=== PATIENT | male | born 1995 | race Caucasian/White ===

== ENCOUNTER 2023-11-18 16:34 | Inpatient (IN) ==
[2023-11-18 17:33] LABS: Basophils # (auto) 0.03 K/uL (0.00-0.20); Basophils % (auto) 0.2 %; Eosinophils # (auto) 0.01 K/uL (0.00-0.50); Eosinophils % (auto) 0.1 %; Hematocrit (blood only) 46.1 % (42.0-52.0); Hemoglobin 15.4 g/dl (14.0-18.0); Immature Granulocytes # (auto) 0.04 K/uL (0.01-0.20); Immature Granulocytes % (auto) 0.3 %; Lymphocytes # (auto) 1.82 K/uL (1.20-3.40); Lymphocytes % (auto) 14.1 %; Mean Corpuscular Hemoglobin 28.4 pg (25.0-34.0); Mean Corpuscular Hgb Conc 33.4 g/dL (32.0-36.0); Mean Corpuscular Volume 85.1 fL (80.0-100.0); Mean Platelet Volume 9.8 fL (9.4-12.4); Monocytes # (auto) 0.43 K/uL (0.11-0.59); Monocytes % (auto) 3.3 %; Neutrophils # (auto) 10.55 K/uL (1.40-6.50); Platelet Count 292 K/uL (130-400); RDW Coefficient of Variation 13.2 % (11.5-14.5); RDW Standard Deviation 40.8 fL (36.4-46.3); Red Blood Count 5.42 M/uL (4.70-6.10); White Blood Count 12.88 K/ul (4.8-10.8)
[2023-11-18 17:45] LABS: Albumin Globulin Ratio 1.3 (0.9-2); Albumin Level 4.7 gm/dl (3.4-5.0); BUN Creatinine Ratio 16.5 (10-20); Bilirubin,Total 0.5 mg/dl (0.2-1.0); Creatinine Clr Calc Pharmacy 132.5 ml/min; Est GFR (African American) 124.4 ml/min; Est GFR (Non-African American) 107.3 ml/min; Globulin 3.7 gm/dl (2.5-4.0); Total Protein 8.4 gm/dl (6.0-8.3)
[2023-11-18 17:48] LABS: Acetaminophen < 3 ug/ml (10-30); Salicylate < 3.0 mg/dl (3.0-30)
[2023-11-18 17:53] LABS: Appearance Urine Clear (Clear); Bacteria Urine Automated None Seen (None Seen); Bilirubin Urine Negative (Negative); Blood Urine Negative (Negative); Cast Urine Automated 0-2 /lpf (0-2); Color Urine Yellow; Epithelial Cell Urine Auto 0-2 /hpf (0-2); Glucose Urine UA Negative (Negative); Ketones Urine 1+ (Negative); Leukocyte Esterase Urine Negative (Negative); Mucus Urine Present (None Prsent); Nitrite Urine Negative (Negative); Protein Urine Trace (Negative); RBC Urine Automated 0-2 /hpf (0-2); Specific Gravity Urine 1.031 (1.000-1.030); Urobilinogen Urine Negative (Negative); WBC Urine Automated 0-5 /hpf (0-5)
[2023-11-18 18:01] LABS: Thyroid Stimulating Hormone 1.912 uIu/ml (0.300-4.500)
[2023-11-18 18:12] LABS: Amphetamines+Metham, Urine Neg (Neg); Barbiturates, Urine Neg (Neg); Benzodiazepine, Urine Neg (Neg); Cocaine, Urine Neg (Neg); Fentanyl, Urine Neg (Neg); MDMA (Ecstacy), Urine Pos (Neg); Marijuana, Urine Neg (Neg); Methadone, Urine Neg (Neg); Opiate, Urine Neg (Neg); Phencyclidine, Urine Neg (Neg)
--- NOTE | 2023-11-18 18:30 | Emergency Department Note ---
Impression & Plan Depression with suicidal ideation ED Provider Note CHIEF COMPLAINT: Mental health evaluation HISTORY OF PRESENT ILLNESS: This 28-year-old male patient with past medical history of depression and anxiety presents emergency department with complaints of worsening symptoms. He did have passive suicidal ideation earlier today. He states he has never had a plan. He has never been admitted to the inpatient service previously. He denies significant substance issues, denies alcohol, tobacco and marijuana. He has been on Wellbutrin, but states he misses doses occasionally. He did recently stop his Abilify within the last 6 weeks. He does have a psychiatrist REVIEW OF SYSTEMS: A review of systems was performed with positives and pertinent negatives listed in the history of present illness. 10 systems were reviewed and are otherwise negative. ALLERGIES: see below MEDICATIONS: see below PMH: see below SOCIAL HISTORY: see below DDx: Toxicologic, mood disorder, trauma, situational stressors, medication noncompliance among others. PHYSICAL EXAM: Vital signs reviewed. General: Well-appearing 28-year-old male, in no significant distress. HEENT: No scleral icterus, PERRLA, neck supple. moist mucous membranes Cardiovascular: Regular rate and rhythm, no extra sounds. Pulmonary: Clear to auscultation bilaterally, normal work of breathing. Abdomen: Soft, nontender, nondistended, positive bowel sounds. Musculoskeletal: Atraumatic, no peripheral edema. Psych: Positive passive SI, negative HI Neurologic: Patient awake alert and oriented x 3, speech is clear Skin: Warm, dry, no rash EMERGENCY DEPARTMENT COURSE/MDM: this patient was evaluated and appeared to be in no significant distress. He was medically cleared and referred to the mental health pillowcase folder for evaluation. Patient was referred on a 201 basis to the inpatient psychiatric team and accepted for admission. Please see their notes for further details. DISPOSITION: Admission Past Med/Surg History Problem List (Updated 11/22/23 @ 06:20 by Blanca Resendiz MD) Borderline personality disorder Bipolar 2 disorder, major depressive episode Anxiety Depression with suicidal ideation (Acute) Alcohol use Post traumatic stress disorder (PTSD) ADHD Depression, unspecified Medical History (Updated 11/22/23 @ 06:20 by Blanca Resendiz MD) Alcohol use disorder No significant past medical history Family History Other No pertinent family history in first degree relatives Social History Smoking Status: Former smoker Preferred Language: Egyptian Communication Ability: Effective Head School Custodian Required: No Beliefs That Will Affect Care: None Feels Safe at Home: Yes Gender Identity: Male Assistive Devices: None Allergies Allergies Allergy/AdvReac Type Severity Reaction Status Date / Time mushroom Allergy Hives Verified 11/19/23 09:30 Penicillins Allergy Hives Verified 11/19/23 09:30 Home Meds Home Medications Medication Instructions Recorded Confirmed bupropion HCl 300 mg 24 hr tablet, 300 mg PO DAILY 11/18/23 11/18/23 extended release prazosin 1 mg capsule 1 mg PO DAILY 11/18/23 11/18/23 propranolol 10 mg tablet 10 mg PO BID PRN anxiety 11/18/23 11/18/23 Results & Data (ED) Vital Signs Vital Signs - 24 hr 11/18/23 16:38 11/18/23 18:34 Temperature 36.5 C Temperature Source Temporal Artery Scan Pulse Rate 102 H Pulse Rate [Finger] 101 H Respiratory Rate 20 18 Respiratory Effort / Characteristics Non-Labored Spontaneous Respiratory Depth Normal Respiratory Pattern Regular Blood Pressure 147/96 H Blood Pressure [Left Arm] 128/84 Blood Pressure Mean 113 Blood Pressure Mean [Left Arm] 98 Blood Pressure Position [Left Arm] Sitting Pulse Oximetry 97 96 Oxygen Delivery Method Room Air Room Air Sepsis Recent Fever Within 48 Hours No Sepsis New/Unexplained Change in Mental Status N/A Sepsis Action Taken by Nursing No Action Required Home Medications Current Medication List: was personally reviewed by me Laboratory Data Attestation: I reviewed the patient's lab results. 11/18/23 17:05 11/18/23 17:05 Lab Results 11/18/23 11/18/23 Range/Units 16:51 17:05 WBC 12.88 H (4.8-10.8) K/ul RBC 5.42 (4.70-6.10) M/uL Hgb 15.4 (14.0-18.0) g/dl Hct 46.1 (42.0-52.0) % MCV 85.1 (80.0-100.0) fL MCH 28.4 (25.0-34.0) pg MCHC 33.4 (32.0-36.0) g/dL RDW Std Deviation 40.8 (36.4-46.3) fL RDW Coeff of Tamra 13.2 (11.5-14.5) % Plt Count 292 (130-400) K/uL MPV 9.8 (9.4-12.4) fL Immature Gran % (Auto) 0.3 % Neut % (Auto) 82.0 % Lymph % (Auto) 14.1 % [place] % (Auto) 3.3 % Eos % (Auto) 0.1 % Baso % (Auto) 0.2 % Neut # (Auto) 10.55 H (1.40-6.50) K/uL Lymph # (Auto) 1.82 (1.20-3.40) K/uL [place] # (Auto) 0.43 (0.11-0.59) K/uL Eos # (Auto) 0.01 (0.00-0.50) K/uL Baso # (Auto) 0.03 (0.00-0.20) K/uL Immature Gran # (Auto) 0.04 (0.01-0.20) K/uL Sodium 136 (136-145) mmol/L Potassium 4.0 (3.5-5.1) mmol/L Chloride 102 (98-107) mmol/L Carbon Dioxide 24 (21-32) mmol/L Anion Gap 10 (3-11) BUN 16 (6-23) mg/dl Creatinine 0.97 (0.6-1.4) mg/dl Est Cr Clr Drug Dosing 132.5 ml/min Est GFR ( Amer) 124.4 ml/min Est GFR (Non-Af Amer) 107.3 ml/min BUN/Creatinine Ratio 16.5 (10-20) Glucose 97 (70-99(Fasting)) mg/dl Calcium 10.0 (8.6-10.3) mg/dl Total Bilirubin 0.5 (0.2-1.0) mg/dl AST 19 (13-39) U/L ALT 21 (7-52) U/L Alkaline Phosphatase 85 (34-104) U/L Total Protein 8.4 H (6.0-8.3) gm/dl Albumin 4.7 (3.4-5.0) gm/dl Globulin 3.7 (2.5-4.0) gm/dl Albumin/Globulin Ratio 1.3 (0.9-2) TSH 1.912 (0.300-4.500) uIu/ml Urine Color Yellow Urine Appearance Clear (Clear) Urine pH 6.0 (4.5-7.5) Ur Specific [place] 1.031 H (1.000-1.030) Urine Protein Trace H (Negative) Urine Glucose (UA) Negative (Negative) Urine Ketones 1+ H (Negative) Urine Blood Negative (Negative) Urine Nitrite Negative (Negative) Urine Bilirubin Negative (Negative) Urine Urobilinogen Negative (Negative) Ur Leukocyte Esterase Negative (Negative) Urine WBC (Auto) 0-5 (0-5) /hpf Urine RBC (Auto) 0-2 (0-2) /hpf U Hyaline Cast (Auto) 0-2 (0-2) /lpf U Epithel Cells (Auto) 0-2 (0-2) /hpf Urine Bacteria (Auto) None Seen (None Seen) Urine Mucus Present A (None Prsent) Salicylates < 3.0 L (3.0-30) mg/dl Urine Opiates Screen Neg (Neg) Ur Methadone, Qual Neg (Neg) Urine Fentanyl Screen Neg (Neg) Acetaminophen < 3 L (10-30) ug/ml Urine Barbiturates Neg (Neg) Ur Phencyclidine (PCP) Neg (Neg) U Amphetamin/Meth Scrn Neg (Neg) MDMA (Ecstasy) Screen Pos H (Neg) U Benzodiazepines Scrn Neg (Neg) Ur Cocaine Metabolite Neg (Neg) U Marijuana (THC) Screen Neg (Neg) Ethyl Alcohol mg/dL < 10.0 (<10.0) mg/dl SARS-CoV-2, RNA, NAAT NEGATIVE (NEGATIVE) Administered Medications Clonidine HCl (Clonidine Hcl 0.1 Mg Tab) 0.1 mg PO SUHA Stop: 12/19/23 21:59 Last Admin: 11/21/23 21:13 Dose: 0.1 mg Documented By: Admin: 11/20/23 21:21 Dose: 0.1 mg Documented By: VDVero Admin: 11/19/23 21:14 Dose: 0.1 mg Documented By: RB Divalproex Sodium (Divalproex Extended Release 250 Mg Tabcr) 250 mg PO SUHA Stop: 12/20/23 21:59 Last Admin: 11/21/23 21:13 Dose: 250 mg Documented By: Admin: 11/20/23 21:21 Dose: 250 mg Documented By: SOURAV Fluoxetine HCl (Fluoxetine Hcl 20 Mg Cap) 20 mg PO QAM SUHA Stop: 12/20/23 10:14 Last Admin: 11/21/23 08:44 Dose: 20 mg Documented By: ESSENCE Co-signed By: JAD Admin: 11/20/23 11:04 Dose: 20 mg Documented By: JAD Hydroxyzine HCl (Hydroxyzine Hcl 25 Mg Tab) 50 mg PO HSZ PRN PRN Reason: Insomnia Stop: 12/18/23 20:45 Last Admin: 11/18/23 21:33 Dose: 50 mg Documented By: JOAO Hydroxyzine HCl (Hydroxyzine Hcl 25 Mg Tab) 25 mg PO Q4H PRN PRN Reason: Anxiety Stop: 12/18/23 20:45 Last Admin: 11/19/23 13:28 Dose: 25 mg Documented By: [id number] Discontinued Medications Bupropion HCl (Bupropion Xl 300 Mg Tabcr) 300 mg PO DAILY SUHA Stop: 12/20/23 08:59 Last Admin: 11/20/23 08:39 Dose: 300 mg Documented By: ESSENCE Co-signed By: JAD Prazosin HCl (Prazosin Hcl 1 Mg Cap) 1 mg PO HS SUHA Stop: 12/18/23 21:59 Last Admin: 11/18/23 21:28 Dose: 1 mg Documented By: JOAO Discharge Plan Visit Data Chief Complaint: Mental Health Evaluation Stated Complaint: MHE ED Provider: Blanca Resendiz Discharge Problem: Depression with suicidal ideation Patient Disposition: Admitted As Inpatient Discharge Instructions Interventions: ED Discharge Assessment Last Done: 11/18/23 22:37
[2023-11-18] MEDS ORDERED: BISMUTH SUBSALICYLATE LIQD 236 ML PO PRN (20:46)
[2023-11-18] MEDS ORDERED: SODIUM CHLORIDE 0.65% NA SOLN 45 ML (OCEAN) PRN (20:46)
[2023-11-18] MEDS ORDERED: MAGNESIUM HYDROXIDE SUSP 30 ML UDC PO PRN (20:46)
[2023-11-18] MEDS ORDERED: ALUMINUM/MAGNESIUM SUSP 30 ML UDC PO PRN (20:46)
[2023-11-18] MEDS ORDERED: ACETAMINOPHEN 325 MG TAB PO PRN (20:46)
[2023-11-18] MEDS: PRAZOSIN HCL 1 MG CAP PO SCH (21:28)
[2023-11-18] MEDS: hydrOXYzine HCl 25 MG TAB PO PRN (21:33)
[2023-11-19 06:46] VITALS: O2SAT 97
--- NOTE | 2023-11-19 08:57 | History & Physical ---
Date of Service November 19, 2023 Impression / Recommendations Impression COLIN BRONSON is a 28-year-old man who currently lives in [place] with his , has a history of BPAD type II, ADHD, depression, anxiety and PTSD, and was admitted on 11/18/23 20:24 on a 201 voluntary commitment for depression and SI. Diagnostically consistent with unspecified mood disorder with differential including BPAD type I or II vs MDD with anxious distress vs substance-induced symptoms vs cluster B personality disorder/BPD. History of alcohol use disorder with periods of sustained remission with brief relapse two days prior to admission in context of increased depression and stress, doesn't meet criteria for use disorder at this time. He is motivated to avoid further alcohol use. Discussed medication treatment options in detail, reviewed possibility for mood stabilizer but need to clarify diagnostic criteria for BPAD type I or II, at this point unclear if any history of prior hypomania or manic episodes as anger could be due to impulsivity from ADHD or irritability from depression/PTSD/anxiety or component of BPD. Reviewed option for medications to help with alcohol cravings, he does not feel this is necessary at this time. Discussed risks, benefits and alternatives to medication to help with sleep and impulsivity and mood. Patient would like to start and consented to clonidine for ADHD and to continue Wellbutrin for depression/ADHD and propranolol as off-label for anxiety for now. Reviewed side effects including but not limited to: sedation, low BP, syncope with clonidine; agitation/increased anxiety/activation with Wellbutrin; low BP, syncope with propranolol. Overall I spent a total of 75 minutes for this admission including review of chart records, review of labwork, direct evaluation of the patient, counseling the patient, ordering medication, risk assessment, discussion with the psychiatric liason RN and documentation in the electronic health record. (1) Depression, unspecified: (2) Depression with suicidal ideation: (3) Post traumatic stress disorder (PTSD): (4) ADHD: (5) Alcohol use: (6) Anxiety: Plan 11/19/2023: The patient was admitted to the [facility] ([facility] mental health unit) on q15 min checks (behavioral with suicide precautions) for safety. The patient will participate in group, recreational, and milieu therapies and will be offered additional individual and family sessions as clinically appropriate. -Disocntinue prazosin -Start clonidine 0.1mg HS -Continue Wellbutrin XL 300mg qd -Continue propranolol 10mg BID prn for anxiety -Mood disorder questionnaire and autumn BPD screen Inventory Assets Strengths: supportive relationships, willing to get treatment Needs: safety and stabilization, medication adjustment, additional coping skills, increased outpatient services Suicide Risk Level Suicide Risk Level: High-Moderate (q15 min suicide checks) (increased depression and SI with plan prior to admission, feels safe in the hospital, feels able to ask for increased support and help if needed) Risk Factors Assessment Male: Yes : Yes Do You Have Access To A Gun?: No Health Problems: No Mental Health Diagnoses: Yes Previous Attempt: No Family History of Suicide: No Previous Psychiatric Hospitalization: No Hopelessness: Yes Protective Factors Assessment : Yes Employed: Yes ([employer]) Stable Relationships: Yes Good Rapport with Provider: Yes Psychiatric History Identifying Data COLIN BRONSON is a 28-year-old man who currently lives in [place] with his , has a history of BPAD type II, ADHD, depression, anxiety and PTSD, and was admitted on 11/18/23 20:24 on a 201 voluntary commitment for depression and SI. Chief Complaint "I have been feeling extremely depressed". History of Present Illness Colin presents for admission for worsening depression and SI. States hospitalization initiated after his was leaving the house and he told her "if you leave I"m going to kill myself" and then she called Crisis services and they recommended he come to the hospital. He reports depression worsening over the last year. He questions why he is alive and feels unsure if he should continue living. Has been having intrusive thoughts about dying by crashing his car. Has experienced depression of and on through his life starting at age 15. This time the depression has lasted much longer and been "off and on the whole year". Identifies stressors of financial instability, frustration with myself that "I can't identify what I need when I'm struggling". He feels like he can't utilize the support his offers because he doesn't know what he needs to feel better. This has added strain to their marriage. He notes "I'm here to get better but also this is the last chance for my marriage because she can't keep putting up with this". He notes "I bottle up a lot of my emotions" and it comes out as anger. He endorses depressive symptoms including anhedonia, self-guilt, hopelessness, helplessness, decreased energy, decreased motivation, decreased concentration, increased sleep of 10-14 hours per night, decreased appetite from Wellbutrin but also seems to have worsened on top of that side effect. SI occurs 2-3 times per week over the last couple of weeks and then intensifying in recent days. He endorses anxiety symptoms including excessive worry, restlessness, fatigue, irritability, muscle tension, insomnia, shakiness and sometimes panic attacks. He does not feel like PTSD symptoms have been impacting him recently. Psychiatric ROS notable for possible history of hypomanic episodes but he notes it's difficult to recall past episodes especially after being on Abilify for about a year. Denies any history or current symptoms of psychosis, nor OCD, nor eating disorder. Identifies possible self-harm as sometimes hitting things like a desk or TV to cause pain. History of cutting in high school. He's currently taking Wellbutrin 300mg daily (has been on this for about 2 months, it seems to help a little bit but it doesn't do enough; no side effects), prazosin HS (has been on this for about 1.5 years, it does help with night terrors but sometimes he forgets to take it) and propranolol prn for anxiety (about 1.5 years, does help when he needs to take it). He used to get Abilify JESUS but missed a month of the injection and "felt great without it" because he didn't like that it "almost dulled my emotions" and "made me feel like a Zoombie". Had been on this for about one year. Has been about 2 months without this. Past Psychiatric History Current Psychiatric Diagnosis: Bipolar 2, ADHD, Anxiety and Depression Outpatient Services: Argelia at [facility], Ibrahima ramsay CM at [facility] Previous Psych Admissions: none Do You Have Access To A Gun?: No History of Previous Suicide Attempt: No Past Medication Trials: none except Abilify JESUS-see HPI Past Head Trauma/Neuro History History of Concussion/Seizure: No Allergies Allergy/AdvReac Type Severity Reaction Status Date / Time mushroom Allergy Hives Verified 11/19/23 09:30 Penicillins Allergy Hives Verified 11/19/23 09:30 Home Medications Medication Instructions Recorded Confirmed Type bupropion HCl 300 mg 24 hr tablet, 300 mg PO DAILY 11/18/23 11/18/23 History extended release prazosin 1 mg capsule 1 mg PO DAILY 11/18/23 11/18/23 History propranolol 10 mg tablet 10 mg PO BID PRN anxiety 11/18/23 11/18/23 History Family History Family History of: Alcoholism/Drug Abuse, Other-List under Comment and Bipolar Family Mental Health History Comment: Anger issues (Mom) Alcohol History Hx of Alcohol Use Over the Past 12 Months: Yes (Occasional) AUDIT Total Score: 2 Years ago had difficulty with alcohol but was then sober for 6 years. Had a brief relapse 6 months ago and then had been sober for the last 6 months until Monday, the day prior to admission when he drank alcohol. Consumed 2 bottles of wine chiller on Monday. Smoking Use Have You Smoked or Used Tobacco Products in the Last 30 Days: No Smoking Status: Former smoker Smoking packs per day: 0 Substance History Hx of Prescription Med Misuse Over the Past 12 Months: No Hx of Over the Counter Med Misuse Over the Past 12 Months: No Hx of Inhalent Misuse Over the Past 12 Months: No Hx of Organic Substance Use Over the Past 12 Months: No Hx of Illegal Substances/Street Drug Use Over Past 12 Months: No Problems as a Result of Past Substance Use: None Identified Problems as a Result of Past Substance Use Comments: Has been sober for 6 months from alcohol but said he had 2 drinks yest Personal History Living Arrangements: Home Highest Grade Completed: High School Graduate 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[employer]) Marital Status: Number Of Children: 0 Beliefs That Will Affect Care: None Current Legal Problems: No Hx Legal Problems: No Hx Traumatic Life Events: Yes Patient History Medical History (Updated 11/19/23 @ 11:47 by Katie Nuno MD) Alcohol use disorder No significant past medical history Family History Other No pertinent family history in first degree relatives Social History Smoking Status: Former smoker Preferred Language: Cook Islander Communication Ability: Effective Engine Repair Supervisor Required: No Beliefs That Will Affect Care: None Feels Safe at Home: Yes Gender Identity: Male Assistive Devices: None Review of Systems Review of Systems: All systems reviewed & are unremarkable except as noted in HPI & below Physical Exam Psychiatric: Orientation: alert and oriented x 3 Apperance: appropriately dressed and appropriately groomed Eye Contact: good eye contact Motor Behavior: no abnormal motor movements Speech: normal rate/rhythm/volume of speech Affect: + depressed affect and + flat affect Mood: + depressed mood and + anxious mood Thought Process: goal directed thought process Thought Content: reality based without delusions Suicidal Thoughts: denies suicidal intent; + reports suicidal thoughts (intermittent ) and + reports suicidal plan (none for hospital, outside to crash his car) Homicidal Thoughts: denies homicidal thoughts Hallucinations: no auditory hallucinations and no visual hallucinations Cognition: recent memory grossly intact, remote memory grossly intact, attention grossly intact and language grossly intact Estimated Intelligence: consistent with education level Insight: + fair insight Judgment: + fair judgement Vital Signs (Past 24 Hours): Last Vital Signs Temp 36.6 C 11/19/23 06:45 Pulse 98 H 11/19/23 06:45 Resp 16 11/19/23 06:45 BP 128/82 11/19/23 06:45 Pulse Ox 97 11/19/23 06:45 O2 Del Method Room Air 11/19/23 06:45 Exam Statement: A physical exam was performed in the ED by Dr. Resendiz for the purposes of medical clearance. I accept that physical as correct and adequate for the purposes of the inpatient physical exam. Results & Data ([facility]) Laboratory Results Laboratory Results - last 24 hr 11/18/23 11/18/23 16:51 17:05 WBC 12.88 H RBC 5.42 Hgb 15.4 Hct 46.1 MCV 85.1 MCH 28.4 MCHC 33.4 RDW Std Deviation 40.8 RDW Coeff of Tamra 13.2 Plt Count 292 MPV 9.8 Immature Gran % (Auto) 0.3 Neut % (Auto) 82.0 Lymph % (Auto) 14.1 [place] % (Auto) 3.3 Eos % (Auto) 0.1 Baso % (Auto) 0.2 Neut # (Auto) 10.55 H Lymph # (Auto) 1.82 [place] # (Auto) 0.43 Eos # (Auto) 0.01 Baso # (Auto) 0.03 Immature Gran # (Auto) 0.04 Sodium 136 Potassium 4.0 Chloride 102 Carbon Dioxide 24 Anion Gap 10 BUN 16 Creatinine 0.97 Est Cr Clr Drug Dosing 132.5 Est GFR ( Amer) 124.4 Est GFR (Non-Af Amer) 107.3 BUN/Creatinine Ratio 16.5 Glucose 97 Calcium 10.0 Total Bilirubin 0.5 AST 19 ALT 21 Alkaline Phosphatase 85 Total Protein 8.4 H Albumin 4.7 Globulin 3.7 Albumin/Globulin Ratio 1.3 TSH 1.912 Urine Color Yellow Urine Appearance Clear Urine pH 6.0 Ur Specific [place] 1.031 H Urine Protein Trace H Urine Glucose (UA) Negative Urine Ketones 1+ H Urine Blood Negative Urine Nitrite Negative Urine Bilirubin Negative Urine Urobilinogen Negative Ur Leukocyte Esterase Negative Urine WBC (Auto) 0-5 Urine RBC (Auto) 0-2 U Hyaline Cast (Auto) 0-2 U Epithel Cells (Auto) 0-2 Urine Bacteria (Auto) None Seen Urine Mucus Present A Salicylates < 3.0 L Urine Opiates Screen Neg Ur Methadone, Qual Neg Urine Fentanyl Screen Neg Acetaminophen < 3 L Urine Barbiturates Neg Ur Phencyclidine (PCP) Neg U Amphetamin/Meth Scrn Neg Urine MDEA Pending MDMA (Ecstasy) Screen Pos H MDMA Pending Urine MDMA Pending U Benzodiazepines Scrn Neg Ur Cocaine Metabolite Neg U Marijuana (THC) Screen Neg Ethyl Alcohol mg/dL < 10.0 SARS-CoV-2, RNA, NAAT NEGATIVE Current Inpatient Medications Current Inpatient Medications: Current Inpatient Medications Acetaminophen (Acetaminophen 325 Mg Tab) 650 mg PO Q4H PRN PRN Reason: Headache or Minor Fever Stop: 12/18/23 20:45 Al Hydrox/Mg Hydrox/Simethicone (Aluminum/Magnesium Susp 30 Ml Udc) 30 ml PO Q4H PRN PRN Reason: GI Upset Stop: 12/18/23 20:45 Bismuth Subsalicylate (Bismuth Subsalicylate Liqd 236 Ml) 15 ml PO PRN PRN PRN Reason: Loose Stool Stop: 12/18/23 20:45 Hydroxyzine HCl (Hydroxyzine Hcl 25 Mg Tab) 50 mg PO HSZ PRN PRN Reason: Insomnia Stop: 12/18/23 20:45 Last Admin: 11/18/23 21:33 Dose: 50 mg Hydroxyzine HCl (Hydroxyzine Hcl 25 Mg Tab) 25 mg PO Q4H PRN PRN Reason: Anxiety Stop: 12/18/23 20:45 Magnesium Hydroxide (Magnesium Hydroxide Susp 30 Ml Udc) 30 ml PO DAILY PRN PRN Reason: Constipation Stop: 12/18/23 20:45 Prazosin HCl (Prazosin Hcl 1 Mg Cap) 1 mg PO HS [facility] Stop: 12/18/23 21:59 Last Admin: 11/18/23 21:28 Dose: 1 mg Sodium Chloride (Sodium Chloride 0.65% Na Soln 45 Ml (Davis)) 1 - 2 sprays NA PRN PRN PRN Reason: Nasal Dryness/Congestion Stop: 12/18/23 20:45
[2023-11-19] MEDS ORDERED: PROPRANOLOL HCL 10 MG TAB PO PRN (09:53)
[2023-11-19] MEDS: hydrOXYzine HCl 25 MG TAB PO PRN (13:28)
[2023-11-19] MEDS: cloNIDine HCL 0.1 MG TAB PO SCH (21:14)
[2023-11-19] MEDS ORDERED: cloNIDine HCL 0.1 MG TAB PO SCH (22:00)
[2023-11-20] MEDS: buPROPion XL 300 MG TABCR PO SCH (08:39)
--- NOTE | 2023-11-20 09:11 | Psychiatric Progress Note ---
Date of Service November 20, 2023 Impression / Recommendations Impression BRENDA BRONSON is a 28-year-old man who currently lives in [place] with his , has a history of BPAD type II, ADHD, depression, anxiety and PTSD, and was admitted on 11/18/23 20:24 on a 201 voluntary commitment for depression and SI. Diagnostically consistent with unspecified mood disorder with differential including BPAD type I or II vs MDD with anxious distress vs substance-induced symptoms vs cluster B personality disorder/BPD. History of alcohol use disorder with periods of sustained remission with brief relapse two days prior to admission in context of increased depression and stress, doesn't meet criteria for use disorder at this time. He is motivated to avoid further alcohol use. A: Ongoing depression but some mood improvement with being in the hospital environment and away from stressors. Reviewed MDQ which is positive and fits with historical diagnosis of BPAD type II being accurate. His Clarice BPD screen was also positive. No side effects from clonidine last night, helped with sleep and tolerated well. He would like to discontinue Wellbutrin in favor of an SSRI due to concern it may be increasing irritability/anger. Reviewed mood stabilizer medication options given BPAD type II and risk of hypomania/comfort if on SSRI monotherapy. Discussed medication treatment options in detail. Discussed risks, benefits and alternatives. Patient would like to start and consented to fluoxetine for depression and anxiety for Depakote ER for mood stabilization and off-label for anger. Reviewed side effects including but not limited to: GI, GAMBLE, sexual side effects, and counseled on black box warning of potential for emergence of or increased SI and need to let staff know should this occur or should they feel unsafe. Also discussed importance of seeking emergency care following discharge if this side effect occurs in the future with fluoxetine and need for routine labwork, weight gain, sedation, liver damage with Depakote. Baseline labs of CBC with diff, LFTs, electrolytes and weight were preformed and WNL. Overall, I spent a total of 45 minutes on this case including meeting with the patient, reviewing the chart, nursing report, multidisciplinary team meeting, orders, and documentation. (1) Depression, unspecified: (2) Depression with suicidal ideation: (3) Post traumatic stress disorder (PTSD): (4) ADHD: (5) Alcohol use: (6) Anxiety: Plan 11/20/2023: -Explore options for DBT IOP such as [facility] which he would be interested in -Discontinue Wellbutrin -Start fluoxetine 20mg qd -Start Depakote ER 250mg HS -Continue with clonidine 0.1mg HS 11/19/2023: The patient was admitted to the [facility] ([facility] mental health unit) on q15 min checks (behavioral with suicide precautions) for safety. The patient will participate in group, recreational, and milieu therapies and will be offered additional individual and family sessions as clinically appropriate. -Disocntinue prazosin -Start clonidine 0.1mg HS -Continue Wellbutrin XL 300mg qd -Continue propranolol 10mg BID prn for anxiety -Mood disorder questionnaire and clarice BPD screen Inventory Assets Strengths: supportive relationships, willing to get treatment Needs: safety and stabilization, medication adjustment, additional coping skills, increased outpatient services Suicide Risk Level Suicide Risk Level: Moderate (q15 min suicide checks) (increased depression and SI with plan prior to admission, mood improving, feels safe in the hospital, feels able to ask for increased support and help if needed) Risk Factors Assessment Male: Yes : Yes Do You Have Access To A Gun?: No Health Problems: No Mental Health Diagnoses: Yes Previous Attempt: No Family History of Suicide: No Previous Psychiatric Hospitalization: No Hopelessness: Yes Protective Factors Assessment : Yes Employed: Yes ([employer]) Stable Relationships: Yes Good Rapport with Provider: Yes Interval History Identifying Information BRENDA BRONSON is a 28-year-old man who currently lives in [place] with his , has a history of BPAD type II, ADHD, depression, anxiety and PTSD, and was admitted on 11/18/23 20:24 on a 201 voluntary commitment for depression and SI. Chief Complaint "I think being away from all the stressors is helping". Review of Systems Sleep Information Total Hours of Sleep: 7.5 Sleep Comments: HS Clonidine with PRN Vistaril Meal Information Percent Meal Consumed - Breakfast: 100 Percent Meal Consumed - Lunch: 100 Percent Meal Consumed - Dinner: 100 Subjective Subjective Patient was seen & assessed and interval progress reviewed with treatment team nursing and social work. He feels his mood is somewhat improved today and wonders if this is due to being away from stressors at home including the 10 cats and having a lot of stuff/clutter at home. Discussed MDQ and BPD screen. He wonders if he and his partner relate to one another because she also has BPD. Physical Exam Psychiatric Orientation: alert and oriented x 3 Apperance: appropriately dressed and appropriately groomed Eye Contact: good eye contact Motor Behavior: no abnormal motor movements Speech: normal rate/rhythm/volume of speech Affect: + depressed affect and + flat affect Mood: + depressed mood and + anxious mood Thought Process: goal directed thought process Thought Content: reality based without delusions Suicidal Thoughts: denies suicidal intent; + reports suicidal thoughts (intermittent ) and + reports suicidal plan (none for hospital, outside to crash his car) Homicidal Thoughts: denies homicidal thoughts Hallucinations: no auditory hallucinations and no visual hallucinations Cognition: recent memory grossly intact, remote memory grossly intact, attention grossly intact and language grossly intact Estimated Intelligence: consistent with education level Insight: + fair insight Judgment: + fair judgement Vital Signs (Past 24 Hours) Last Vital Signs Temp 37.0 C 11/20/23 06:54 Pulse 75 11/20/23 06:54 Resp 16 11/20/23 06:54 BP 128/85 11/20/23 06:55 Pulse Ox 97 11/20/23 06:54 O2 Del Method Room Air 11/20/23 06:54 Results & Data ([facility]) Current Inpatient Medications Current Inpatient Medications: Current Inpatient Medications Acetaminophen (Acetaminophen 325 Mg Tab) 650 mg PO Q4H PRN PRN Reason: Headache or Minor Fever Stop: 12/18/23 20:45 Al Hydrox/Mg Hydrox/Simethicone (Aluminum/Magnesium Susp 30 Ml Udc) 30 ml PO Q4H PRN PRN Reason: GI Upset Stop: 12/18/23 20:45 Bismuth Subsalicylate (Bismuth Subsalicylate Liqd 236 Ml) 15 ml PO PRN PRN PRN Reason: Loose Stool Stop: 12/18/23 20:45 Bupropion HCl (Bupropion Xl 300 Mg Tabcr) 300 mg PO DAILY SUHA Stop: 12/20/23 08:59 Last Admin: 11/20/23 08:39 Dose: 300 mg Clonidine HCl (Clonidine Hcl 0.1 Mg Tab) 0.1 mg PO HS SUHA Stop: 12/19/23 21:59 Last Admin: 11/19/23 21:14 Dose: 0.1 mg Hydroxyzine HCl (Hydroxyzine Hcl 25 Mg Tab) 50 mg PO HSZ PRN PRN Reason: Insomnia Stop: 12/18/23 20:45 Last Admin: 11/18/23 21:33 Dose: 50 mg Hydroxyzine HCl (Hydroxyzine Hcl 25 Mg Tab) 25 mg PO Q4H PRN PRN Reason: Anxiety Stop: 12/18/23 20:45 Last Admin: 11/19/23 13:28 Dose: 25 mg Magnesium Hydroxide (Magnesium Hydroxide Susp 30 Ml Udc) 30 ml PO DAILY PRN PRN Reason: Constipation Stop: 12/18/23 20:45 Propranolol HCl (Propranolol Hcl 10 Mg Tab) 10 mg PO BID PRN PRN Reason: anxiety Stop: 12/19/23 09:52 Sodium Chloride (Sodium Chloride 0.65% Na Soln 45 Ml ([place])) 1 - 2 sprays NA PRN PRN PRN Reason: Nasal Dryness/Congestion Stop: 12/18/23 20:45 Mental Health & Subst Abuse Tx Psychiatrist Name of Psychiatrist: Nba Castanon Date Of Appointment With Psychiatric Provider: 02/11/24 Time of Appointment with Psychiatrist: 9:30am Associate Professor Of Law Name of Associate Professor Of Law: Ibrahima Giraldo Family Post Discharge Appointments Primary Care Physician Name Of Family Doctor/PCP: Denies Contact Information Discharge Discharge Address: [facility] [address] [place] [address]
[2023-11-20] MEDS: FLUoxetine HCL 20 MG CAP PO SCH (11:04)
[2023-11-20] MEDS: DIVALPROEX EXTENDED RELEASE 250 MG TABCR PO SCH (21:21)
--- NOTE | 2023-11-21 09:28 | Psychiatric Progress Note ---
Date of Service November 21, 2023 Impression / Recommendations Impression BRENDA BRONSON is a 28-year-old man who currently lives in [place] with his , has a history of BPAD type II, ADHD, depression, anxiety and PTSD, and was admitted on 11/18/23 20:24 on a 201 voluntary commitment for depression and SI. Diagnostically consistent with BPAD type II current depressive episode, BPD, ADHD and PTSD. A: Mood improving, tolerated initial dose of Depakote. He prefers to remain at the current dose and not increase it further for now. Tolerating initial doses of fluoxetine so far. No side effects today from discontinuation of Wellbutrin, denies irritability/anger. Overall, I spent a total of 25 minutes on this case including meeting with the patient, reviewing the chart, nursing report, multidisciplinary team meeting, orders, and documentation. (1) Bipolar 2 disorder, major depressive episode: (2) Borderline personality disorder: (3) Post traumatic stress disorder (PTSD): (4) ADHD: (5) Anxiety: Plan 11/21/2023: Continue current medications and tx plan. Working on referral for outpatient IOP with DBT component. 11/20/2023: -Explore options for DBT IOP such as [facility] which he would be interested in -Discontinue Wellbutrin -Start fluoxetine 20mg qd -Start Depakote ER 250mg HS -Continue with clonidine 0.1mg HS 11/19/2023: The patient was admitted to the [facility] ([facility] mental health unit) on q15 min checks (behavioral with suicide precautions) for safety. The patient will participate in group, recreational, and milieu therapies and will be offered additional individual and family sessions as clinically appropriate. -Disocntinue prazosin -Start clonidine 0.1mg HS -Continue Wellbutrin XL 300mg qd -Continue propranolol 10mg BID prn for anxiety -Mood disorder questionnaire and autumn BPD screen Inventory Assets Strengths: supportive relationships, willing to get treatment Needs: safety and stabilization, medication adjustment, additional coping skills, increased outpatient services Suicide Risk Level Suicide Risk Level: Moderate (q15 min suicide checks) (increased depression and SI with plan prior to admission, mood improving, feels safe in the hospital, feels able to ask for increased support and help if needed) Risk Factors Assessment Male: Yes : Yes Do You Have Access To A Gun?: No Health Problems: No Mental Health Diagnoses: Yes Previous Attempt: No Family History of Suicide: No Previous Psychiatric Hospitalization: No Hopelessness: Yes Protective Factors Assessment : Yes Employed: Yes ([employer]) Stable Relationships: Yes Good Rapport with Provider: Yes Interval History Identifying Information BRENDA BRONSON is a 28-year-old man who currently lives in [place] with his , has a history of BPAD type II, ADHD, depression, anxiety and PTSD, and was admitted on 11/18/23 20:24 on a 201 voluntary commitment for depression and SI. Chief Complaint "Ok". Review of Systems Sleep Information Total Hours of Sleep: 6.75 Sleep Comments: HS Clonidine Meal Information Percent Meal Consumed - Breakfast: 100 Percent Meal Consumed - Lunch: 100 Percent Meal Consumed - Dinner: 100 Subjective Subjective Patient was seen & assessed and interval progress reviewed with treatment team nursing and social work. Attending groups. Mood feeling a little more hopeful. Tolerated Depakote dose last night, didn't find it very sedating. Still finding clonidine helpful. No difference in mood today with stopping Wellbutrin. No side effects from fluoxetine. He had a supportive call with his about ways to reduce some of the stressors at home. Physical Exam Psychiatric Orientation: alert and oriented x 3 Apperance: appropriately dressed and appropriately groomed Eye Contact: good eye contact Motor Behavior: no abnormal motor movements Speech: normal rate/rhythm/volume of speech Affect: + flat affect Mood: + depressed mood and + anxious mood Thought Process: goal directed thought process Thought Content: reality based without delusions Suicidal Thoughts: denies suicidal thoughts, denies suicidal plan and denies suicidal intent Homicidal Thoughts: denies homicidal thoughts Hallucinations: no auditory hallucinations and no visual hallucinations Cognition: recent memory grossly intact, remote memory grossly intact, attention grossly intact and language grossly intact Estimated Intelligence: consistent with education level Insight: + fair insight Judgment: + fair judgement Vital Signs (Past 24 Hours) Last Vital Signs Temp 36.9 C 11/21/23 06:00 Pulse 87 11/21/23 06:36 Resp 20 11/21/23 06:00 BP 110/75 11/21/23 06:36 Pulse Ox 97 11/20/23 06:54 O2 Del Method Room Air 11/20/23 06:54 Results & Data ([facility]) Current Inpatient Medications Current Inpatient Medications: Current Inpatient Medications Acetaminophen (Acetaminophen 325 Mg Tab) 650 mg PO Q4H PRN PRN Reason: Headache or Minor Fever Stop: 12/18/23 20:45 Al Hydrox/Mg Hydrox/Simethicone (Aluminum/Magnesium Susp 30 Ml Udc) 30 ml PO Q4H PRN PRN Reason: GI Upset Stop: 12/18/23 20:45 Bismuth Subsalicylate (Bismuth Subsalicylate Liqd 236 Ml) 15 ml PO PRN PRN PRN Reason: Loose Stool Stop: 12/18/23 20:45 Clonidine HCl (Clonidine Hcl 0.1 Mg Tab) 0.1 mg PO HS SUHA Stop: 12/19/23 21:59 Last Admin: 11/20/23 21:21 Dose: 0.1 mg Divalproex Sodium (Divalproex Extended Release 250 Mg Tabcr) 250 mg PO HS SUHA Stop: 12/20/23 21:59 Last Admin: 11/20/23 21:21 Dose: 250 mg Fluoxetine HCl (Fluoxetine Hcl 20 Mg Cap) 20 mg PO QAM SUHA Stop: 12/20/23 10:14 Last Admin: 11/21/23 08:44 Dose: 20 mg Hydroxyzine HCl (Hydroxyzine Hcl 25 Mg Tab) 50 mg PO HSZ PRN PRN Reason: Insomnia Stop: 12/18/23 20:45 Last Admin: 11/18/23 21:33 Dose: 50 mg Hydroxyzine HCl (Hydroxyzine Hcl 25 Mg Tab) 25 mg PO Q4H PRN PRN Reason: Anxiety Stop: 12/18/23 20:45 Last Admin: 11/19/23 13:28 Dose: 25 mg Magnesium Hydroxide (Magnesium Hydroxide Susp 30 Ml Udc) 30 ml PO DAILY PRN PRN Reason: Constipation Stop: 12/18/23 20:45 Propranolol HCl (Propranolol Hcl 10 Mg Tab) 10 mg PO BID PRN PRN Reason: anxiety Stop: 12/19/23 09:52 Sodium Chloride (Sodium Chloride 0.65% Na Soln 45 Ml ([place])) 1 - 2 sprays NA PRN PRN PRN Reason: Nasal Dryness/Congestion Stop: 12/18/23 20:45 Mental Health & Subst Abuse Tx Psychiatrist Name of Psychiatrist: Nba Castanon Date Of Appointment With Psychiatric Provider: 02/11/24 Time of Appointment with Psychiatrist: 9:30am Bilingual Speech Language Pathologist Name of Bilingual Speech Language Pathologist: Ibrahima Giraldo Family Post Discharge Appointments Primary Care Physician Name Of Family Doctor/PCP: Denies Contact Information Discharge Discharge Address: [address] [place] [address]
[2023-11-22 06:29] VITALS: RESP 16
--- NOTE | 2023-11-22 09:25 | Psychiatric Progress Note ---
Date of Service November 22, 2023 Impression / Recommendations Impression BRENDA BRONSON is a 28-year-old man who currently lives in [place] with his , has a history of BPAD type II, ADHD, depression, anxiety and PTSD, and was admitted on 11/18/23 20:24 on a 201 voluntary commitment for depression and SI. Diagnostically consistent with BPAD type II current depressive episode, BPD, ADHD and PTSD. A: Mood continues to improve, doesn't show a lot of affect but denies any thoughts of SI and feels medication changes are helpful. Agreeable to 24 hour depakote level tonight, reviewed expectation is that level be low, level to ensure not supratherapeutic and to custom feed mill operator helper any future outpatient titrations should he become interested in this in the future. Working on disposition planning. Overall, I spent a total of 25 minutes on this case including meeting with the patient, reviewing the chart, nursing report, multidisciplinary team meeting, orders, and documentation. (1) Bipolar 2 disorder, major depressive episode: (2) Borderline personality disorder: (3) Post traumatic stress disorder (PTSD): (4) ADHD: (5) Anxiety: Plan 11/22/2023: Continue current medications and tx plan. 24 hour depakote level tonight before HS dose. 11/21/2023: Continue current medications and tx plan. Working on referral for outpatient IOP with DBT component. 11/20/2023: -Explore options for DBT IOP such as [facility] which he would be interested in -Discontinue Wellbutrin -Start fluoxetine 20mg qd -Start Depakote ER 250mg HS -Continue with clonidine 0.1mg HS 11/19/2023: The patient was admitted to the [facility] ([facility] mental health unit) on q15 min checks (behavioral with suicide precautions) for safety. The patient will participate in group, recreational, and milieu therapies and will be offered additional individual and family sessions as clinically appropriate. -Disocntinue prazosin -Start clonidine 0.1mg HS -Continue Wellbutrin XL 300mg qd -Continue propranolol 10mg BID prn for anxiety -Mood disorder questionnaire and autumn BPD screen Inventory Assets Strengths: supportive relationships, willing to get treatment Needs: safety and stabilization, medication adjustment, additional coping skills, increased outpatient services Suicide Risk Level Suicide Risk Level: Moderate (q15 min suicide checks) (increased depression and SI with plan prior to admission, mood improving, feels safe in the hospital, denies SI, feels able to ask for increased support and help if needed) Risk Factors Assessment Male: Yes : Yes Do You Have Access To A Gun?: No Health Problems: No Mental Health Diagnoses: Yes Previous Attempt: No Family History of Suicide: No Previous Psychiatric Hospitalization: No Hopelessness: Yes Protective Factors Assessment : Yes Employed: Yes ([employer]) Stable Relationships: Yes Good Rapport with Provider: Yes Interval History Identifying Information BRENDA BRONSON is a 28-year-old man who currently lives in [place] with his , has a history of BPAD type II, ADHD, depression, anxiety and PTSD, and was admitted on 11/18/23 20:24 on a 201 voluntary commitment for depression and SI. Chief Complaint "A little drowsy". Review of Systems Sleep Information Total Hours of Sleep: 8 Sleep Comments: HS Clonidine Meal Information Percent Meal Consumed - Breakfast: 100 Percent Meal Consumed - Lunch: 100 Percent Meal Consumed - Dinner: 100 Subjective Subjective Patient was seen & assessed and interval progress reviewed with treatment team n lori and social work. A little drowsy today but mood is "good". Continues to find medications helpful. Denies any side effects. Physical Exam Psychiatric Orientation: alert and oriented x 3 Apperance: appropriately dressed and appropriately groomed Eye Contact: good eye contact Motor Behavior: no abnormal motor movements Speech: normal rate/rhythm/volume of speech Affect: + constricted affect Mood: + depressed mood and + anxious mood Thought Process: goal directed thought process Thought Content: reality based without delusions Suicidal Thoughts: denies suicidal thoughts, denies suicidal plan and denies suicidal intent Homicidal Thoughts: denies homicidal thoughts Hallucinations: no auditory hallucinations and no visual hallucinations Cognition: recent memory grossly intact, remote memory grossly intact, attention grossly intact and language grossly intact Estimated Intelligence: consistent with education level Insight: + fair insight Judgment: + fair judgement Vital Signs (Past 24 Hours) Last Vital Signs Temp 35.5 C L 11/22/23 06:00 Pulse 82 11/22/23 06:28 Resp 16 11/22/23 06:00 BP 116/81 11/22/23 06:28 Pulse Ox 97 11/20/23 06:54 O2 Del Method Room Air 11/20/23 06:54 Results & Data ([facility]) Current Inpatient Medications Current Inpatient Medications: Current Inpatient Medications Acetaminophen (Acetaminophen 325 Mg Tab) 650 mg PO Q4H PRN PRN Reason: Headache or Minor Fever Stop: 12/18/23 20:45 Al Hydrox/Mg Hydrox/Simethicone (Aluminum/Magnesium Susp 30 Ml Udc) 30 ml PO Q4H PRN PRN Reason: GI Upset Stop: 12/18/23 20:45 Bismuth Subsalicylate (Bismuth Subsalicylate Liqd 236 Ml) 15 ml PO PRN PRN PRN Reason: Loose Stool Stop: 12/18/23 20:45 Clonidine HCl (Clonidine Hcl 0.1 Mg Tab) 0.1 mg PO HS SUHA Stop: 12/19/23 21:59 Last Admin: 11/21/23 21:13 Dose: 0.1 mg Divalproex Sodium (Divalproex Extended Release 250 Mg Tabcr) 250 mg PO HS SUHA Stop: 12/20/23 21:59 Last Admin: 11/21/23 21:13 Dose: 250 mg Fluoxetine HCl (Fluoxetine Hcl 20 Mg Cap) 20 mg PO QAM SUHA Stop: 12/20/23 10:14 Last Admin: 11/22/23 08:37 Dose: 20 mg Hydroxyzine HCl (Hydroxyzine Hcl 25 Mg Tab) 50 mg PO HSZ PRN PRN Reason: Insomnia Stop: 12/18/23 20:45 Last Admin: 11/18/23 21:33 Dose: 50 mg Hydroxyzine HCl (Hydroxyzine Hcl 25 Mg Tab) 25 mg PO Q4H PRN PRN Reason: Anxiety Stop: 12/18/23 20:45 Last Admin: 11/19/23 13:28 Dose: 25 mg Magnesium Hydroxide (Magnesium Hydroxide Susp 30 Ml Udc) 30 ml PO DAILY PRN PRN Reason: Constipation Stop: 12/18/23 20:45 Propranolol HCl (Propranolol Hcl 10 Mg Tab) 10 mg PO BID PRN PRN Reason: anxiety Stop: 12/19/23 09:52 Sodium Chloride (Sodium Chloride 0.65% Na Soln 45 Ml ([place])) 1 - 2 sprays NA PRN PRN PRN Reason: Nasal Dryness/Congestion Stop: 12/18/23 20:45 Mental Health & Subst Abuse Tx Psychiatrist Name of Psychiatrist: Nba [facility] Date Of Appointment With Psychiatric Provider: 02/11/24 Time of Appointment with Psychiatrist: 9:30am Therapist Name of Therapist: Felton ETIENNE Therapist's Phone Number: Date of Therapist Appointment: Monday Time of Therapist Appointment: 10 am Therapy Appointment Comment: Intake Appointment Keyboarding Clerk Name of Keyboarding Clerk: Ibrahima Giraldo Family Post Discharge Appointments Primary Care Physician Name Of Family Doctor/PCP: Denies Contact Information Discharge Discharge Address: [facility] [place] [address]
[2023-11-23 06:14] VITALS: BP 123/85; TEMP 96.3
--- NOTE | 2023-11-23 08:29 | Discharge Summary ---
Date of Service November 23, 2023 History of Present Illness Colin presents for admission for worsening depression and SI. States hospitalization initiated after his was leaving the house and he told her "if you leave I"m going to kill myself" and then she called Crisis services and they recommended he come to the hospital. He reports depression worsening over the last year. He questions why he is alive and feels unsure if he should continue living. Has been having intrusive thoughts about dying by crashing his car. Has experienced depression of and on through his life starting at age 15. This time the depression has lasted much longer and been "off and on the whole year". Identifies stressors of financial instability, frustration with myself that "I can't identify what I need when I'm struggling". He feels like he can't utilize the support his offers because he doesn't know what he needs to feel better. This has added strain to their marriage. He notes "I'm here to get better but also this is the last chance for my marriage because she can't keep putting up with this". He notes "I bottle up a lot of my emotions" and it comes out as anger. He endorses depressive symptoms including anhedonia, self-guilt, hopelessness, helplessness, decreased energy, decreased motivation, decreased concentration, increased sleep of 10-14 hours per night, decreased appetite from Wellbutrin but also seems to have worsened on top of that side effect. SI occurs 2-3 times per week over the last couple of weeks and then intensifying in recent days. He endorses anxiety symptoms including excessive worry, restlessness, fatigue, irritability, muscle tension, insomnia, shakiness and sometimes panic attacks. He does not feel like PTSD symptoms have been impacting him recently. Psychiatric ROS notable for possible history of hypomanic episodes but he notes it's difficult to recall past episodes especially after being on Abilify for about a year. Denies any history or current symptoms of psychosis, nor OCD, nor eating disorder. Identifies possible self-harm as sometimes hitting things like a desk or TV to cause pain. History of cutting in high school. He's currently taking Wellbutrin 300mg daily (has been on this for about 2 months, it seems to help a little bit but it doesn't do enough; no side effects), prazosin HS (has been on this for about 1.5 years, it does help with night terrors but sometimes he forgets to take it) and propranolol prn for anxiety (about 1.5 years, does help when he needs to take it). He used to get Abilify JESUS but missed a month of the injection and "felt great without it" because he didn't like that it "almost dulled my emotions" and "made me feel like a Zoombie". Had been on this for about one year. Has been about 2 months without this. Physical Exam Vital Signs (Past 24 Hours) Last Vital Signs Temp 35.7 C L 11/23/23 06:00 Pulse 85 11/23/23 06:13 Resp 16 11/23/23 06:00 BP 123/85 11/23/23 06:13 Pulse Ox 97 11/20/23 06:54 O2 Del Method Room Air 11/20/23 06:54 See admission H&P and DOD summary. Principal Diagnosis Bipolar Affective Disorder Type II, current depressive episode Psychiatric Data See daily stay summary. In short, patient was engaged with the social/therapeutic milieu of the unit, safety was maintained and the patient was cooperative with care. Medication changes included discontinuation of Wellbutrin and prazosin initiation of clonidine 0.1mg HS for ADHD/insomnia/anxiety, flu oxetine 20mg HS for depression/anxiety, Depakote ER 250mg HS for mood stabilization/impulsivity with anger and they tolerated this well. Depakote level at discharge was 19 mcg/ml. Recommend repeat CBC with diff and LFTs at one month. Then CBC with diff, Depakote level, and LFTs annually or anytime symptoms arise. A support session was held and safety plan was completed prior to discharge. He actively and insightfully participated in safety planning and in discussions about ways to seek support and recognizing warning signs and utilizing coping skills. Reviewed mobile apps that could be used for additional ways to have their safety plan and contacts easily available should thoughts of SI re-emerge in the future. Reviewed importance of seeking emergency care should SI intensify, worsen or should they feel unsafe in the future which they agree to do. On the day of discharge he stated his mood was "good, a little anxious about going back to some of my stressors" and remained future-oriented including seeing his , getting home, going back to work, going to a local farmstand and engaging in aftercare appointments for psychiatry, therapy and [facility] for CBT/DBT. Day of Discharge Assessment Today the patient voices readiness for discharge. They note improvement in mood and anxiety. They deny thoughts of harm to self or others. Thoughts are organized and they are clinically improved from admission. There is no evidence of psychosis. They improved in the hospital with support and medication adjustments. They agree to take medications as prescribed and keep follow-up appointments. At the time of the discharge they are deemed to be stable and appropriate for outpatient level of care. They are not deemed to be at imminent risk of harm to self or others. They are aware of emergency and crisis services. Knows to call 911 or go to nearest emergency care center if in a crisis which cannot be handled as an outpatient. Overall, I spent a total of 32 minutes on this case including meeting with the patient, reviewing the chart, nursing report, multidisciplinary team meeting, orders, and documentation. Transition of Care Transition Of Care Record: was reviewed with the patient Advance Directives Advance Directives Information Provided: No Advance Directives: No Mental Health Advance Directive: No Advance Directives on File: No Living Will: No Power of Dump Truck Driver: No Advance Directives Reason:: Declines as Mental Health Visit. Suicide Risk Level Suicide Risk Level Comments: Acute risk is low given improvement in mood and denial of SI, lack of access to lethal means, improvement in sleep, hopefulness. Chronic risk is moderate given some non-modifiable risk factors: psychiatric co-morbid diagnoses, periods of impulsivity, hx self-harm, emotional reactivity, mood disorder, cluster B personality disorder, childhood trauma, but also with protective factors including: employed, good social support, sense of responsibility to family and social supports, outpatient care in place, positive coping skills, positive problem solving, capacity to establish therapeutic alliance, willingness to engage with treatment and capacity for self-observation. Counseled on ways to reduce acute and chronic risk including engaging with outpatient providers, using safety plan if needed, utilizing supports, taking medication, and using coping skills. Modifiable risk factors of SI and depression were addressed during hospitalization through development of new coping skills, family meeting, safety planning, and medication adjustments. Risk Factors Assessment Male: Yes : Yes Do You Have Access To A Gun?: No Health Problems: No Mental Health Diagnoses: Yes Previous Attempt: No Family History of Suicide: No Previous Psychiatric Hospitalization: No Hopelessness: No Protective Factors Assessment : Yes Employed: Yes ([employer]) Stable Relationships: Yes Good Rapport with Provider: Yes Discharge Data Lab Results 11/18/23 11/18/23 11/22/23 16:51 17:05 20:47 WBC 12.88 H RBC 5.42 Hgb 15.4 Hct 46.1 MCV 85.1 MCH 28.4 MCHC 33.4 RDW Std Deviation 40.8 RDW Coeff of Tamra 13.2 Plt Count 292 MPV 9.8 Immature Gran % (Auto) 0.3 Neut % (Auto) 82.0 Lymph % (Auto) 14.1 [place] % (Auto) 3.3 Eos % (Auto) 0.1 Baso % (Auto) 0.2 Neut # (Auto) 10.55 H Lymph # (Auto) 1.82 Cherokee # (Auto) 0.43 Eos # (Auto) 0.01 Baso # (Auto) 0.03 Immature Gran # (Auto) 0.04 Sodium 136 Potassium 4.0 Chloride 102 Carbon Dioxide 24 Anion Gap 10 BUN 16 Creatinine 0.97 Est Cr Clr Drug Dosing 132.5 Est GFR ( Amer) 124.4 Est GFR (Non-Af Amer) 107.3 BUN/Creatinine Ratio 16.5 Glucose 97 Calcium 10.0 Total Bilirubin 0.5 AST 19 ALT 21 Alkaline Phosphatase 85 Total Protein 8.4 H Albumin 4.7 Globulin 3.7 Albumin/Globulin Ratio 1.3 TSH 1.912 Urine Color Yellow Urine Appearance Clear Urine pH 6.0 Ur Specific Jerome 1.031 H Urine Protein Trace H Urine Glucose (UA) Negative Urine Ketones 1+ H Urine Blood Negative Urine Nitrite Negative Urine Bilirubin Negative Urine Urobilinogen Negative Ur Leukocyte Esterase Negative Urine WBC (Auto) 0-5 Urine RBC (Auto) 0-2 U Hyaline Cast (Auto) 0-2 U Epithel Cells (Auto) 0-2 Urine Bacteria (Auto) None Seen Urine Mucus Present A Salicylates < 3.0 L Urine Opiates Screen Neg Ur Methadone, Qual Neg Urine Fentanyl Screen Neg Acetaminophen < 3 L Urine Barbiturates Neg Valproic Acid 19 L Ur Phencyclidine (PCP) Neg U Amphetamin/Meth Scrn Neg MDMA (Ecstasy) Screen Pos H U Benzodiazepines Scrn Neg Ur Cocaine Metabolite Neg U Marijuana (THC) Screen Neg Ethyl Alcohol mg/dL < 10.0 SARS-CoV-2, RNA, NAAT NEGATIVE Hospital Course (1) Bipolar 2 disorder, major depressive episode: (2) Borderline personality disorder: (3) Post traumatic stress disorder (PTSD): (4) ADHD: (5) Anxiety: Plan 11/22/2023: Continue current medications and tx plan. 24 hour depakote level tonight before HS dose. 11/21/2023: Continue current medications and tx plan. Working on referral for outpatient IOP with DBT component. 11/20/2023: -Explore options for DBT IOP such as [facility] which he would be interested in -Discontinue Wellbutrin -Start fluoxetine 20mg qd -Start Depakote ER 250mg HS -Continue with clonidine 0.1mg HS 11/19/2023: The patient was admitted to the [facility] ([facility]) on q15 min checks (behavioral with suicide precautions) for safety. The patient will participate in group, recreational, and milieu therapies and will be offered additional individual and family sessions as clinically appropriate. -Disocntinue prazosin -Start clonidine 0.1mg HS -Continue Wellbutrin XL 300mg qd -Continue propranolol 10mg BID prn for anxiety -Mood disorder questionnaire and autumn BPD screen Mental Health & Subst Abuse Tx Psychiatrist Name of Psychiatrist: Nba Gonzalez) Psychiatrist's Date Of Appointment With Psychiatric Provider: 11/28/23 Time of Appointment with Psychiatrist: 2:00pm Psychiatric Appointment Comment: [address] [facility] [id number] Therapist Name of Therapist: [facility]'s Phone Number: Date of Therapist Appointment: Monday Time of Therapist Appointment: 10 am Therapy Appointment Comment: Intake Appointment Plant Sprayer Name of Plant Sprayer: Ibrahima Giraldo Family Post Discharge Appointments Primary Care Physician Name Of Family Doctor/PCP: Denies Contact Information Discharge Discharge Address: [facility] [place] [address] Discharge Plan Discharge Items Patient Disposition: Home - Self-Care Reason For Visit: UNSPECIFIED DEPRESSIVE DISORDER Discharge Diagnosis: Bipolar Affective Disorder Type II, current depressive episode Activity: Resume your previous activity Non-emergency contact: Psychiatrist, Therapist and [place] Sawyer Call non-emergency contact if: you have any medication questions and your symptoms worsen Follow-up/Referrals: PCP,NO [Primary Care Provider] - Diet: Regular Addtl Attending Provider Instructions: Optional mobile apps we discussed: -Suicide safety plan -Virtual Hope Box SPECIAL CARE INSTRUCTIONS: 1. Follow through with your scheduled aftercare appointments. If unable to keep an appointment, please call to reschedule. 2. Take your medication only as prescribed. Medication should not be changed or stopped without the approval of your doctor. In the event of worsening symptoms or concerns about side effects, contact your doctor immediately. 3. Utilize new healthy coping skills, anger management skills, and stress management skills learned during your hospitalization. Journal feelings and process them with a support person. Identify stressors or situations that may result in relapse, deterioration or inappropriate behaviors and develop a plan to deal with those issues. 4. If your coping skills are ineffective and you are in crisis, contact your outpatient providers for direction. If unable to reach your providers, please call the [facility] CRISIS LINE AT , go to the [facility] walk-in center at [address] [place] [address] A, [place], or go to the closest Emergency Room. 5. Avoid alcohol and un-prescribed drugs. 6. You have been provided with the Mental Health Advance Directives Pamphlet for your review. 7. Your condition is stable for discharge to outpatient level of care, but recovery is an ongoing process. Ifthoughts to harm yourself or others return, follow the safety plan developed during your stay. Planning for a safe return home includes securing weapons. Our treatment team recommends weaponsbe removed from the home until your outpatient provider reassesses your progress. In rare cases where the items themselvescannot be removed, guns and ammunitionshould be secured separatelyand keys stored by a reliable personoutside of the home. If you were admitted on an involuntary commitment, the police or other legal authorities may be involved in this process. AFTERCARE APPOINTMENTS: * Please call your insurance company prior to your scheduled appointment to confirm your aftercare providers are covered. Take your insurance information to your appointments. WHO TO CALL AND WHEN: Medical Emergencies: For questions or emergencies related to your hospital stay, please contact the Inpatient Behavioral Health Unit at [phone]. A vascular ultrasound technologist is on-call 02/01 for the Behavioral Health Unit for emergencies At any time you feel your situation is an emergency, you may also call 911 immediately. National Crisis Hotline: 988 Pending Studies at Discharge: No Stand-Alone Forms: My [facility] Medications and DC Order Prescriptions: New clonidine HCl 0.1 mg Tablet 0.1 mg PO HS 30 Days Qty: 30 0RF divalproex 250 mg Tablet Extended Release 24 Hr 250 mg PO HS 30 Days Qty: 30 0RF fluoxetine 20 mg Capsule 20 mg PO HS 30 Days Qty: 30 0RF hydroxyzine HCl 25 mg Tablet 25 mg PO BID PRN (Reason: anxiety/insomnia) 30 Days Qty: 60 0RF Continued propranolol 10 mg Tablet 10 mg PO BID PRN (Reason: anxiety ) Discontinued bupropion HCl 300 mg tablet extended release 24 hr 300 mg PO DAILY prazosin 1 mg capsule 1 mg PO DAILY Discharge Orders: Discharge Order (Routine); Ordered 11/23/23 Ordered By: Katie Nuno Admission Data Admit Date/Time: 11/18/23 20:24 Attending Provider: Katie Nuno Admit Provider: Katie Nuno Primary Care Provider: PCP,NO Other Interventions: Discharge Summary Assessment (RN) Last Done: 11/23/23 11:06 PSY Interdisciplinary Discharge Planning Last Done: 11/23/23 11:05 Coding Level of Care Code 45065 D/C day mgmt > 30 min Diagnoses Bipolar 2 disorder, major depressive episode F31.81 Borderline personality disorder F60.3 Post traumatic stress disorder (PTSD) F43.10 ADHD F90.9 Anxiety F41.9
[2023-11-23 11:09] VITALS: PULSE 78
[2023-11-23 19:27] LABS: MDA negative; MDEA negative; MDMA (Ecstasy) Urine, Confirm negative
== END 2023-11-23 11:54 | disposition home or self-care (01) | DRG 885 ==
LOC: ED 16:34 → 3S 20:24